=== PATIENT | male | born 2000 | race Caucasian/White ===

== ENCOUNTER 2018-04-29 10:11 | Emergency (ER) | payer OTHER, SELFPAY ==
[2018-04-29 10:12] VITALS: BP 135/74; PULSE 71; RESP 18; TEMP 37.1; O2SAT 98; BMI 28.8
--- NOTE | 2018-04-29 10:23 | ED.VISSUMM ---
- ER Visit Summary Date of Service: 04/29/18 Chief Complaint: Puncture wound, left foot History of Present Illness: The patient is a 17 M who was at work when he stepped on a nail. He works at a [employer] and he was wearing his boots when he stepped on a nail. He was able to control the bleeding on his own. His last tetanus is greater than 10 years ago. Denies any other symptoms. Physical Examination: Vital signs reviewed. Left foot exam reveals a puncture wound on the bottom of the foot. There is no bleeding, tenderness or erythema. The rest of his physical exam is unremarkable Test Results: None performed Emergency Department Course and Treatment: Patient will be treated with Adacel and ciprofloxacin. Appropriate forms will be filled out. He will go home with [facility] and will follow up with his PCP. NSAIDs for pain Treatment Plan: [] Disposition: Discharge Impression: Puncture wound, left foot This note was generated with [employer] (formerly [employer]) dictation software. It may contain incorrect words, spelling, and punctuation that were not noted in review of the chart prior to signing
--- NOTE | 2018-04-29 10:25 | ED.DEP ---
ED Disposition - Plan for ED Patient: Disposition: Home or Assisted Living Instructions: ED Wound Puncture Foot Prescriptions: Ciprofloxacin [Cipro] 500 mg PO BID #13 tab
[2018-04-29] MEDS: Ciprofloxacin 500 MG Tablet PO (10:30)
[2018-04-29] MEDS: Diphth,Pertuss(Acell),Tet Vac 0.5 ML Vial IM (10:30)
== END 2018-04-29 11:50 | disposition home or self-care (01) ==
PROVIDERS: Emergency Provider Emergency Medicine
DX: S91.332A Puncture wound without foreign body, left foot, initial encounter (principal); W22.8XXA Striking against or struck by other objects, initial encounter; Y93.9 Activity, unspecified; Y92.89 Other specified places as the place of occurrence of the external cause; Y99.0 Civilian activity done for income or pay
CPT/HCPCS: 90471; 90715; 99283